=== PATIENT | male | born 1975 | race Two or more races ===

== ENCOUNTER 2017-01-23 01:23 | Emergency (ER) | payer SELFPAY ==
[~2017-01-23] VITALS: Ht 152.4 cm; Wt 73.0 kg
[2017-01-23 01:49] VITALS: BP 152/100
--- NOTE | 2017-01-23 02:01 | Emergency Room Report ---
History of Present Illness General Chief Complaint: General Complaint Source: Patient, EMS Present Illness HPI 41-year-old male presenting with alcohol intoxication and unable to move legs. History obtained from police states that patient called 911, suddenly unable to walk one hour prior to call, admits to drinking, however ANO x4, presenting with bilateral leg pain and stiffness, unable to move, no urinary retention or incontinence, no history of IV drug abuse, no fever or chills Denies head trauma or LOC Allergies: Coded Allergies: No Known Allergies (Unverified , 01/23/17) Patient History Past Medical History: see triage record Past Surgical History: none Pertinent Family History: none Reviewed Nursing Documentation: PMH: Agreed, PSxH: Agreed Nursing Documentation-PMH Past Medical History: No Stated History Review of Systems All Other Systems: negative except mentioned in HPI Physical Exam Vital Signs Date Time Temp Pulse Resp B/P (MAP) Pulse Ox O2 Delivery O2 Flow Rate FiO2 01/23/17 01:25 97.9 100 18 165/100 98 Room Air Sp02 EP Interpretation: reviewed, normal General Appearance: alert, GCS 15, non-toxic, moderate distress, other - Disheveled intoxicated middle-aged male, appears to be in distress, intoxicated however ANO x4 Head: normocephalic, atraumatic Eyes: bilateral eye normal inspection, bilateral eye PERRL, bilateral eye EOMI ENT: normal ENT inspection, normal pharynx, normal voice, moist mucus membranes Neck: normal inspection, full range of motion, supple Respiratory: normal inspection, lungs clear, normal breath sounds, no respiratory distress, no retraction, no wheezing, speaking full sentences, chest symmetrical Cardiovascular #1: normal inspection, regular rate, rhythm, no edema, normal capillary refill Cardiovascular #2: 2+ radial (R), 2+ radial (L) Gastrointestinal: normal inspection, non tender, soft, non-distended, no guarding Rectal: normal rectal tone Genitourinary: no CVA tenderness Musculoskeletal: other - No back tenderness, throughout Neurologic: oriented x3, responsive, sensory intact, other - Bilateral legs with good tone, patient is actively extending both legs, Babinski negative bilaterally, good rectal tone, however patient refusing to move bilateral legs, sensation intact Psychiatric: other - Intoxicated and however following commands Skin: normal inspection, normal color, no rash, warm/dry, well hydrated, normal turgor Medical Decision Making Diagnostic Impression: Primary Impression: Alcohol intoxication ER Course 41-year-old male, alcohol intoxication, states he cannot move his legs DDX: Alcohol intoxication At this time for compression, cauda equina is on differential as patient is refusing to move his legs or walk, however good tone bilaterally, good rectal tone Plan: Obtain labs, ua, EKG Pain control ER course: Patient has been monitored during ED stay, HD stable The patient seemed to be awake alert, moving his legs Admitted to staff that he believes "gangbangers" are outside to get him and that is why he wants to stay in the hospital Denying any complaints at this time Clinically sober Disposition: Patient discharged to home. Told to follow up with primary care doctor in 2 days Please note that this Emergency Department Report was dictated using [employer] wheel maker technology software, occasionally this can lead to erroneous entry secondary to interpretation by the dictation equipment. Rhythm Strip EP Interpretation: Yes Rate: 85 Rhythm: NSR, no PVCs, no ectopy Laboratory Tests Test 01/23/17 02:05 01/23/17 02:30 White Blood Count 3.2 K/UL (4.8-10.8) L Red Blood Count 4.16 M/UL (4.70-6.10) L Hemoglobin 13.5 G/DL (14.2-18.0) L Hematocrit 38.7 % (42.0-52.0) L Mean Corpuscular Volume 93 FL (80-99) Mean Corpuscular Hemoglobin 32.5 PG (27.0-31.0) H Mean Corpuscular Hemoglobin Concent 34.9 G/DL (32.0-36.0) Red Cell Distribution Width 13.5 % (11.6-14.8) Platelet Count 27 K/UL (150-450) L Mean Platelet Volume 13.7 FL (6.5-10.1) H Neutrophils (%) (Auto) % (45.0-75.0) Lymphocytes (%) (Auto) % (20.0-45.0) Monocytes (%) (Auto) % (1.0-10.0) Eosinophils (%) (Auto) % (0.0-3.0) Basophils (%) (Auto) % (0.0-2.0) Neutrophils % (Manual) Pending Lymphocytes % (Manual) Pending Platelet Estimate Pending Platelet Morphology Pending Prothrombin Time 10.7 SEC (9.30-11.50) Prothrombin Time INR 1.0 (0.9-1.1) PTT 25 SEC (23-33) Sodium Level 142 MMOL/L (136-145) Potassium Level 3.5 MMOL/L (3.5-5.1) Chloride Level 106 MMOL/L (98-107) Carbon Dioxide Level 23 MMOL/L (21-32) Anion Gap 13 mmol/L (5-15) Blood Urea Nitrogen 7 mg/dL (7-18) Creatinine 0.7 MG/DL (0.55-1.30) Estimate Glomerular Filtration Rate > 60 mL/min (>60) Glucose Level 101 MG/DL (74-106) Calcium Level 8.4 MG/DL (8.5-10.1) L Total Bilirubin 0.9 MG/DL (0.2-1.0) Aspartate Amino Transferase (AST) 122 U/L (15-37) H Alanine Aminotransferase (ALT) 81 U/L (12-78) H Alkaline Phosphatase 122 U/L (46-116) H Total Protein 8.1 G/DL (6.4-8.2) Albumin 4.1 G/DL (3.4-5.0) Globulin 4.0 g/dL Albumin/Globulin Ratio 1.0 (1.0-2.7) Serum Alcohol 164 mg/dL Urine Color Yellow Urine Appearance Clear Urine pH 6.5 (4.5-8.0) Urine Specific [place] 1.020 (1.005-1.035) Urine Protein Negative (NEGATIVE) Urine Glucose (UA) Negative (NEGATIVE) Urine Ketones Negative (NEGATIVE) Urine Occult Blood Negative (NEGATIVE) Urine Nitrite Negative (NEGATIVE) Urine Bilirubin Negative (NEGATIVE) Urine Urobilinogen 1 MG/DL (0.0-1.0) H Urine Leukocyte Esterase 2+ (NEGATIVE) H Urine RBC 0-2 /HPF (0 - 0) H Urine WBC 2-4 /HPF (0 - 0) Urine Squamous Epithelial Cells Occasional /LPF Urine Bacteria Few /HPF (NONE) Urine Opiates Screen Negative (NEGATIVE) Urine Barbiturates Screen Negative (NEGATIVE) Phencyclidine (PCP) Screen Negative (NEGATIVE) Urine Amphetamines Screen Negative (NEGATIVE) Urine Benzodiazepines Screen Negative (NEGATIVE) Urine Cocaine Screen Negative (NEGATIVE) Urine Marijuana (THC) Screen Negative (NEGATIVE) Last Vital Signs Date Time Temp Pulse Resp B/P (MAP) Pulse Ox O2 Delivery O2 Flow Rate FiO2 01/23/17 01:49 97.9 87 19 152/100 98 Room Air Disposition: HOME, SELF-CARE Condition: Improved Rasheeda Calloway M.D. Jan 23, 2017 02:01
[2017-01-23 02:23] LABS: MEAN CORPUSCULAR HEMOGLOBIN 32.5 PG (27.0-31.0); MEAN CORPUSCULAR HGB CONC 34.9 G/DL (32.0-36.0); MEAN CORPUSCULAR VOLUME 93 FL (80-99); MEAN PLATELET VOLUME 13.7 FL (6.5-10.1); PLATELET COUNT 27 K/UL (150-450); RED BLOOD COUNT 4.16 M/UL (4.70-6.10); RED CELL DISTRIBUTION WIDTH 13.5 % (11.6-14.8); WHITE BLOOD COUNT 3.2 K/UL (4.8-10.8)
[2017-01-23 02:39] LABS: ALANINE AMINOTRANSFERASE 81 U/L (12-78); ALCOHOL 164 mg/dL; ANION GAP 13 mmol/L (5-15); ASPARTATE AMINO TRANSFERASE 122 U/L (15-37); CALCIUM 8.4 MG/DL (8.5-10.1); CARBON DIOXIDE 23 MMOL/L (21-32); CHLORIDE 106 MMOL/L (98-107); CREATININE 0.7 MG/DL (0.55-1.30); GLOMERULAR FILTRATION RATE > 60 mL/min (>60); POTASSIUM 3.5 MMOL/L (3.5-5.1); PROTHROMBIN TIME 10.7 SEC (9.30-11.50); SODIUM 142 MMOL/L (136-145); TOTAL PROTEIN 8.1 G/DL (6.4-8.2)
[2017-01-23 02:55] LABS: APPEARANCE,URINE CLEAR; KETONES,URINE NEGATIVE (NEGATIVE); LEUKOCYTE ESTERASE ,URINE 2+ (NEGATIVE); NITRITE,URINE NEGATIVE (NEGATIVE); PH,URINE 6.5 (4.5-8.0); PROTEIN,URINE NEGATIVE (NEGATIVE); UROBILINOGEN,URINE 1 MG/DL (0.0-1.0)
[2017-01-23 03:10] LABS: BACTERIA,URINE FEW /HPF; RBC,URINE 0-2 /HPF (0 - 0); SQUAMOUS EPITHELIAL CELL,UR OCCASIONAL /LPF (NONE/OCC)
[2017-01-23 03:23] VITALS: BP 133/83
[2017-01-23 05:00] VITALS: BP 120/74
[2017-01-23 06:13] VITALS: BP 120/74
[2017-01-23 09:02] LABS: BAND NEUTROPHILS % (MANUAL) 0 % (0-8); BASOPHILS % (MANUAL) 0 % (0-2); EOSINOPHILS % (MANUAL) 2 % (0-3); LYMPHOCYTES % (MANUAL) 21 % (20-45); NEUTROPHILS % (MANUAL) 69 % (45-75); PLATELET ESTIMATE DECREASED; PLATELET MORPHOLOGY NORMAL; TOTAL CELLS COUNTED 100
== END 2017-01-23 06:20 | disposition home or self-care (01) ==
LOC: EDBD 01:23 → EMR 01:41
DX: F10.129 Alcohol abuse with intoxication, unspecified (principal)
CPT/HCPCS: 36415; 80053; 80307; 81001; 85007; 85025; 85610; 85730; 96361; 96374; 99284; G0480; 80329

== ENCOUNTER 2017-01-23 07:09 | Emergency (ER) | payer SELFPAY ==
[~2017-01-23] VITALS: Ht 160 cm; Wt 72.6 kg
[2017-01-23] MEDS ORDERED: LORazepam Inj 2mg/ml 1ml IV ONE (07:15)
[2017-01-23 07:20] VITALS: BP 160/128
--- NOTE | 2017-01-23 07:57 | Emergency Room Report ---
History of Present Illness General Chief Complaint: General Complaint Source: Patient Present Illness HPI Patient was seen in our emergency department earlier today. Patient apparently was brought in by the police for altered mental status. Patient was intoxicated. Patient was monitored in emergency department until he became clinically sober he was ultimately discharged. While in the waiting room he apparently to had a gagging and coughing spasm started to lay on the floor and that was brought here for further evaluation. On arrival he was coughing and gagging and not cooperative with our staff. Review medical records show that in the past when he first arrived here he claims not to be able to ambulate but when it became to be sober he actually walked. Uncertain and there secondary gain. No witnessed seizure was noted. History is limited at this time as patient is a gagging and appears to be not cooperating with our exam or history. Symptoms are noted to be severe. No other modifying factors. No other associated signs and symptoms. No other complaints were noted. Allergies: Coded Allergies: No Known Allergies (Unverified , 01/23/17) Patient History Past Medical History: none Social History: Reports: alcohol use Reviewed Nursing Documentation: PMH: Agreed, PSxH: Agreed Nursing Documentation-PMH Past Medical History: No Stated History Review of Systems All Other Systems: limited - patient noncompliant Physical Exam Vital Signs Date Time Temp Pulse Resp B/P (MAP) Pulse Ox O2 Delivery O2 Flow Rate FiO2 01/23/17 07:10 98.2 114 25 160/128 100 Room Air Sp02 EP Interpretation: reviewed, normal General Appearance: moderate distress Head: atraumatic Eyes: bilateral eye normal inspection ENT: normal ENT inspection, moist mucus membranes Neck: supple Respiratory: lungs clear, normal breath sounds Cardiovascular #1: regular rate, rhythm, no edema Gastrointestinal: non tender, soft Genitourinary: normal inspection, no CVA tenderness Musculoskeletal: normal inspection, back normal Neurologic: alert, other - not cooperating but moving all extremities and grossly nonfocal Psychiatric: anxious Skin: normal inspection, normal color, no rash Medical Decision Making Diagnostic Impression: Primary Impression: Alcohol abuse Additional Impression: Cough ER Course Patient presents emergency department with a coughing episode after being discharged. Differential considerations include anxiety, alcohol withdrawal, seizure, cough. Patient's chest x-ray was normal head CT was negative. Patient was fairly agitated require some sedation. Patient appeared more calm afterwards. Patient was monitored emergency department with no further events. Patient will be discharged when he is awake and sober.Patient is advised to follow up with primary doctor in 2-3 days and return the emergency room for any worsening symptoms and as needed. Chest X-Ray Diagnostic Results Chest X-Ray Diagnostic Results : Chest X-Ray Ordered: Yes # of Views/Limited/Complete: 1 View Indication: Shortness of Breath EP Interpretation: No Impression: No acute disease CT/MRI/US Diagnostic Results CT/MRI/US Diagnostic Results : Imaging Test Ordered: head CT: Neg per rad Last Vital Signs Date Time Temp Pulse Resp B/P (MAP) Pulse Ox O2 Delivery O2 Flow Rate FiO2 01/23/17 07:20 98.2 25 160/128 100 Room Air 01/23/17 07:10 114 Status: improved Disposition: HOME, SELF-CARE Condition: Stable Referrals: NOT CHOSEN IPA/,REFERRING (PCP) ESAN FAM M.D. Jan 23, 2017 07:57
--- NOTE | 2017-01-23 08:31 | Diagnostic Imaging Report ---
Indications: Altered mental status Technique: Spiral acquisitions obtained through the brain. Angled axial and coronal 5 x 5 mm slices were reconstructed. Total dose length product 1333 mGycm. CTDI vol(s) 70 mGy. Dose reduction achieved using automated exposure control Comparison: None Findings: There is a small scalp hematoma near the vertex just to the right of midline. No underlying calvarial fracture. There is medial displacement of the bilateral medial orbital cevallos. There is normal ethmoid and sphenoid sinus disease. The optic globes are intact. The mastoids are clear. Ventricles and extra axial CSF spaces are prominent for age. No acute intracranial hemorrhage or edema. No mass effect or midline shift. Impression: Mild cerebral volume loss, prominent for age Right parietal scalp hematoma Negative for acute intracranial bleed or mass effect The CT scanner at [facility] is accredited by the [employer] and the scans are performed using protocols designed to limit radiation exposure to as low as reasonably achievable to attain images of sufficient resolution adequate for diagnostic evaluation.
[2017-01-23 09:02] VITALS: BP 122/66
[2017-01-23 09:19] VITALS: BP 122/66
--- NOTE | 2017-01-23 11:17 | Diagnostic Imaging Report ---
Indication: COUGH Technique: One view of the chest Comparison: none Findings: Lungs and pleural spaces are clear. Heart size is normal. Impression: No acute process This agrees with the preliminary interpretation provided by the emergency room physician
--- NOTE | 2017-01-25 18:40 | Cardiology Report ---
APPROVED REPORT EKG Measurement Heart [id number] Normal sinus rhythm Normal ECG
== END 2017-01-23 09:19 | disposition home or self-care (01) ==
LOC: EMR 07:24
DX: F10.129 Alcohol abuse with intoxication, unspecified (principal); R05 Cough; R41.82 Altered mental status, unspecified; S00.03XA Contusion of scalp, initial encounter; X58.XXXA Exposure to other specified factors, initial encounter; Y92.89 Other specified places as the place of occurrence of the external cause
CPT/HCPCS: 70450; 71010; 93005; 96374; 96375; 99284; J2405